=== PATIENT | female | born 1965 | race Caucasian/White ===

== ENCOUNTER 2017-11-03 15:25 | Emergency (ER) | payer OTHER ==
[2017-11-03 18:55] VITALS: BP 159/87
--- NOTE | 2017-11-03 20:25 | UC ---
Throat Pain/Nasal Stan HPI - HPI Summary HPI Summary: several days of worsening sinus and ear pain - History of Current Complaint Chief Complaint: UCRespiratory Stated Complaint: sinus congestion Time Seen by Provider: 11/03/17 20:17 Hx Obtained From: Patient ?: No Onset/Duration: Gradual Onset, Lasting Days Severity: Moderate Pain Intensity: 0 Cough: None Associated Signs & Symptoms: Positive: Sinus Discomfort, Nasal Discharge - Allergies/Home Medications Allergies/Adverse Reactions: Allergies Allergy/AdvReac Type Severity Reaction Status Date / Time cefdinir Allergy Rash Verified 11/03/17 18:56 ciprofloxacin [From Cipro] Allergy Rash Verified 11/03/17 18:56 Home Medications: Home Medications Cholecalciferol TAB* [Vitamin D TAB*] 400 unit PO DAILY 11/03/17 [History Confirmed 11/03/17] Valsartan/HCTZ 80/12.5(NF) [Diovan Hct 80/12.5(NF)] 1 tab PO DAILY 11/03/17 [ History Confirmed 11/03/17] PMH/Surg Hx/FS Hx/Imm Hx Previously Healthy: No Cardiovascular History: Hypertension - Surgical History Surgical History: Yes Surgery Procedure, Year, and Place: partial hysterectomy 2007 - Family History Known Family History: Positive: None - Social History Occupation: Employed Full-time Lives: With Family Alcohol Use: None Substance Use Type: None Smoking Status (MU): Never Smoked Tobacco Review of Systems Constitutional: Negative Skin: Negative Eyes: Negative ENT: Sore Throat, Ear Ache, Nasal Discharge, Sinus Congestion, Sinus Pain/ Tenderness Respiratory: Negative Cardiovascular: Negative Gastrointestinal: Negative Genitourinary: Negative Motor: Negative Neurovascular: Negative Musculoskeletal: Negative Neurological: Headache Psychological: Negative Is Patient Immunocompromised?: No All Other Systems Reviewed And Are Negative: Yes Physical Exam Triage Information Reviewed: Yes Appearance: Well-Appearing, No Pain Distress, Obese Vital Signs: Initial Vital Signs Temp 97.1 F 11/03/17 18:51 Pulse 88 11/03/17 18:51 Resp 14 11/03/17 18:51 BP 159/87 11/03/17 18:51 Pulse Ox 98 11/03/17 18:51 Vital Signs Reviewed: Yes Eye Exam: Normal Eyes: Positive: Conjunctiva Clear ENT Exam: Normal ENT: Positive: Normal ENT inspection, Hearing grossly normal, Pharynx normal, Nasal congestion, TMs normal, Sinus tenderness, Uvula midline. Negative: Tonsillar swelling, Tonsillar exudate, Trismus, Muffled voice, Hoarse voice Dental Exam: Normal Neck exam: Normal Neck: Positive: Supple, Nontender, No Lymphadenopathy Respiratory Exam: Normal Respiratory: Positive: Chest non-tender, Lungs clear, Normal breath sounds, No respiratory distress, No accessory muscle use Cardiovascular Exam: Normal Cardiovascular: Positive: RRR, No Murmur, Pulses Normal, Brisk Capillary Refill Musculoskeletal Exam: Normal Musculoskeletal: Positive: Strength Intact, ROM Intact, No Edema Neurological Exam: Normal Neurological: Positive: Alert, Muscle Tone Normal Psychological Exam: Normal Skin Exam: Normal Throat Pain/Nasal Course/Dx - Course Assessment/Plan: Augmentin, flonase, increase fluids, follow blood pressure with pcp - Differential Dx/Diagnosis Provider Diagnoses: Acute Rhinosinuisitis, HTN in poor control Discharge - Discharge Plan Condition: Stable Disposition: HOME Prescriptions: Amoxicillin/Clavulanate TAB* [Augmentin TAB 875*] 875 mg PO BID #20 tab Fluconazole [Diflucan 150 MG (NF)] 150 mg PO ONCE #2 tab Patient Education Materials: Rhinosinusitis (ED), Hypertension (ED), How to Use Nasal [place] (ED) Referrals: Saji Friedman NP [Primary Care Provider] - 2 Weeks
[2017-11-03] MEDS ORDERED: Amoxicillin/Clavulanate TAB* 875 MG PO ONE (20:28)
== END 2017-11-03 20:43 | disposition home or self-care (01) ==
LOC: UCEAST 15:25
DX: J01.90 Acute sinusitis, unspecified (principal); I10 Essential (primary) hypertension; Z88.1 Allergy status to other antibiotic agents
CPT/HCPCS: 99212; A9270-GY; G0463